=== PATIENT | female | born 1985 | race Caucasian/White ===

== ENCOUNTER 2020-09-11 18:00 | Emergency (ER) | payer BC, MEDICAID, OTHER ==
--- NOTE | 2020-09-11 19:28 | ED Physician Documentation ---
PD HPI BACK PAIN - Stated complaint Stated Complaint: GLF/BACK PX - Chief complaint Chief Complaint: Back Pain - History obtained from History obtained from: Patient - History of Present Illness Timing - onset: Today Timing - duration: Hours Timing - details: Abrupt onset Location: Lower, Right, Left Quality: Pain, Spasm Associated symptoms: No: Fever, Weakness Improves with: No: Rest Worsened by: Movement Contributing factors: Twisting (she slipped on a rug and twisted low back with pain onset. Did not fall per se and no impact to the back.) Similar symptoms before: Diagnosis (has some herniated discs with recent low back pain, getting physical therapy the past couple of weeks; has had back pain episodes. Was feeling okay prior to the twist today, as PT has been helping well recently. .) Recently seen: Not recently seen Review of Systems Constitutional: denies: Fever, Chills Cardiac: denies: Chest pain / pressure GI: denies: Abdominal Pain : denies: Dysuria, Incontinent Skin: denies: Rash, Lesions Neurologic: denies: Generalized weakness, Focal weakness, Numbness PD PAST MEDICAL HISTORY - Past Medical History Past Medical History: Yes Cardiovascular: None Respiratory: None Psych: Depression Musculoskeletal: Chronic back pain (episodic pains) - Past Surgical History Past Surgical History: No - Present Medications Home Medications: Ambulatory Orders Medication Instructions Recorded Confirmed Citalopram [CeleXA] 20 mg PO DAILY PM 09/11/20 09/11/20 HYDROcod/ACETAM 5/325 [[place] 5/325] 1 ea PO Q6H PRN #18 tablet 09/11/20 dexAMETHasone [Decadron] 4 mg PO DAILY #5 tablet 09/11/20 tiZANidine [Zanaflex] 4 mg PO Q8H PRN #25 tablet 09/11/20 - Allergies Allergies/Adverse Reactions: Allergies Allergy/AdvReac Type Severity Reaction Status Date / Time No Known Drug Allergies Allergy Verified 09/11/20 18:20 - Social History Does the pt smoke?: No Smoking Status: Never smoker Does the pt drink ETOH?: Yes Does the pt have substance abuse?: No - Immunizations Immunizations are current?: Yes PD ED PE NORMAL - Vitals Vital signs reviewed: Yes - General General: Alert and oriented X 3, Well developed/nourished, Other (appears uncomfortable and with limited/guarded ROM of the low back. ) - Cardiac Cardiac: RRR, No murmur - Respiratory Respiratory: Clear bilaterally - Abdomen Abdomen: Soft, Non tender - Back Back: No CVA TTP, No spinal TTP (not really tender midline as she is in paralumbar muscles left more than right. ) - Derm Derm: Normal color, Warm and dry, No rash Results - Vitals Vitals: Vital Signs - 24 hr 09/11/20 09/11/20 18:16 20:30 Temperature 36.9 C 36.8 C Heart Rate 95 62 Respiratory 16 16 Rate Blood Pressure 135/83 H 118/71 O2 Saturation 98 97 Oxygen O2 Source Room air PD MEDICAL DECISION MAKING - ED course Complexity details: re-evaluated patient (improved with meds here in ED; she is comfortable for heading home. ), considered differential (history of low back pains with recent twisting injury and getting PT that is helping. New injury today without red flags to suggest need for testing/imaging. ), d/w patient Departure - Departure Disposition: Home, Self Care Clinical Impression: Lumbar strain Qualifiers: Encounter type: initial encounter Qualified Code(s): S39.012A - Strain of muscle, fascia and tendon of lower back, initial encounter Sciatica Qualifiers: Laterality: left Qualified Code(s): M54.32 - Sciatica, left side Condition: Stable Record reviewed to determine appropriate education?: Yes Instructions: ED Low Back Pain Injury Prescriptions: dexAMETHasone [Decadron] 4 mg PO DAILY #5 tablet HYDROcod/ACETAM 5/325 [[place] 5/325] 1 ea PO Q6H PRN #18 tablet PRN Reason: Pain tiZANidine [Zanaflex] 4 mg PO Q8H PRN #25 tablet PRN Reason: Spasms Comments: Continue with your physical therapy for the low back. Heat and gentle stretching are good and consider massage as well. Decadron steroid anti-inflammatory daily for 5 more days. Subsequently you can use nonsteroidal anti-inflammatory such as ibuprofen or naproxen pain. Tizanidine muscle relaxant as needed for spasms and stiffness. To that add Tylenol 500 to 650 mg 4 times daily for pain. Alternatively hydrocodone with acetaminophen for worse pain. This is a opioid pain medicine and would be intended for short-term and episodic use for the worst pain. Follow-up with your primary care if not improving well over the next several days to a week down to the prior level of back pain or hopefully even better resolved. I am prescribing a short course of narcotic pain medication for you. These are potentially dangerous and addictive medications that should be used carefully. These medications may constipate you. Take an [id number] stool softener such as docusate twice daily with plenty of water while taking these medications. If you go 24 hours without a bowel movement, take [id number] MiraLAX, per package instructions. Do not drink or drive while taking these medications. If you received narcotic or sedating medications while in the emergency department do not drive for 24 hours. Store this medication in a safe, secure place and out of reach of children. It is a violation of federal law to give or sell this medication to another person or to use in a manner other than prescribed. The ED will not refill narcotic prescriptions, including prescriptions lost or stolen. You can dispose of unwanted medications at the [facility]'s office or at several pharmacies such as [facility]. Discharge Date/Time: 09/11/20 20:31
[2020-09-11] MEDS ORDERED: ACETAMINOPHEN 325 MG TABLET PO STA (19:49)
[2020-09-11] MEDS ORDERED: CHERRY SYRUP 10 ML UDC PO ONE (19:49)
[2020-09-11] MEDS ORDERED: methocarbamoL 500 MG TABLET PO STA (19:49)
[2020-09-11] MEDS ORDERED: DEXAMETHASONE 10 MG/ML VIAL PO STA (19:49)
[2020-09-11] MEDS ORDERED: HYDROmorphone 1 MG/ML CARPUJECT IVP STA (19:49)
[2020-09-11] MEDS ORDERED: HYDROmorphone 1 MG/ML CARPUJECT IM STA (20:05)
[2020-09-11 20:32] VITALS: BP 118/71
== END 2020-09-11 20:31 | disposition home or self-care (01) ==
LOC: ED 18:00
DX: S39.012A Strain of muscle, fascia and tendon of lower back, initial encounter (principal); M54.32 Sciatica, left side; W01.0XXA Fall on same level from slipping, tripping and stumbling without subsequent striking against object, initial encounter
CPT/HCPCS: 96372; 99283; 99284; A9270; J1170